=== PATIENT | female | born 1990 | race Caucasian/White ===

== ENCOUNTER 2017-08-03 23:30 | Emergency (ER) | payer MEDICAID, OTHER ==
[2017-08-03 23:55] VITALS: BP 120/78; PULSE 80; RESP 20; TEMP 98.8; O2SAT 100
--- NOTE | 2017-08-04 00:57 | C.PDOC ---
History Of Present Illness 27 years old female presents to ED with complaints of left ear pain that began 3 days ago. Denies fever, ear discharge, headache, or sore throat. Patient states she was recently treated for an ear infection in June and had similar symptoms. Time Seen by Provider: 08/04/17 00:04 Chief Complaint (Nursing): ENT Problem History Per: Patient History/Exam Limitations: None Onset/Duration Of Symptoms: Days (3) Current Symptoms Are (Timing): Still Present Quality (Ear): denies: Discharge Symptoms Have Been: Continuous Past Medical History Reviewed: Historical Data, Nursing Documentation, Vital Signs Vital Signs: Last Vital Signs Temp 98.8 F 08/03/17 23:50 Pulse 80 08/03/17 23:50 Resp 20 08/03/17 23:50 BP 120/78 08/03/17 23:50 Pulse Ox 100 08/04/17 03:12 - Medical History PMH: No Chronic Diseases - [facility] Procedures INJECT/INFUSE NEC (01/26/06) Family History: States: No Known Family Hx - Social History Hx Tobacco Use: No Hx Alcohol Use: No Hx Substance Use: No - Immunization History Hx Tetanus Toxoid Vaccination: No Hx Influenza Vaccination: Yes Hx Pneumococcal Vaccination: No Review Of Systems Constitutional: Negative for: Fever ENT: Positive for: Ear Pain (left ear). Negative for: Ear Discharge, Throat Pain Gastrointestinal: Negative for: Nausea, Vomiting, Abdominal Pain, Diarrhea Skin: Negative for: Rash Neurological: Negative for: Weakness, Numbness, Headache Psych: Negative for: Depression, Suicidal ideation Physical Exam - Physical Exam Appears: Well, Non-toxic, Other (Awake and alert) Skin: Warm, Dry Head: Atraumatic, Normacephalic Eye(s): bilateral: Normal Inspection Ear(s): Left: TM Erythema, Other (TM discharge, No tragal tenderness) Nose: No Discharge Oral Mucosa: Moist Throat: Normal, No Erythema, No Exudate Chest: Symmetrical Cardiovascular: Rhythm Regular Gastrointestinal/Abdominal: Normal Exam, Soft Neurological/Psych: Oriented x3, Normal Speech, Normal Cognition ED Course And Treatment O2 Sat by Pulse Oximetry: 100 (Room air ) Pulse Ox Interpretation: Normal Disposition Counseled Patient/Family Regarding: Diagnosis, Need For Followup, Rx Given - Disposition Referrals: Eric Quiroga MD [Staff Provider] - Disposition: HOME/ ROUTINE Disposition Time: 00:55 Condition: STABLE Additional Instructions: Take meds as prscribed Follow up with ENT Return to ER if worse Prescriptions: Amoxicillin/Clavulanate [Augmentin 500 MG-125 MG] 1 tab PO TID #21 tab Ibuprofen [Motrin] 600 mg PO Q6H #24 tab Instructions: Otitis Media (ED) Forms: [employer] ([place]) - Clinical Impression Clinical Impression: Otitis media - 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 - Scribe Statement The provider has reviewed the documentation as recorded by the Rivasibclif Carnes All medical record entries made by the Vee were at my direction and personally dictated by me. I have reviewed the chart and agree that the record accurately reflects my personal performance of the history, physical exam, medical decision making, and the department course for this patient. I have also personally directed, reviewed, and agree with the discharge instructions and disposition.
== END 2017-08-04 01:07 | disposition home or self-care (01) ==
LOC: C.ER 23:30
DX: H66.92 Otitis media, unspecified, left ear (principal)